=== PATIENT | female | born 1950 | race Caucasian/White ===

== ENCOUNTER 2016-09-21 12:07 | Observation (INO) | payer OTHER ==
[~2016-09-21] VITALS: Ht 160 cm; Wt 83.5 kg
[2016-09-21 13:19] LABS: HEMOGLOBIN 13.6 gm/dl (12.3-15.3); RED BLOOD COUNT 4.37 M/UL (4.00-5.10)
[2016-09-21 13:30] LABS: BUN/CREATININE RATIO 20 (0-10)
[2016-09-22] MEDS ORDERED: EFFEXOR XR 75 M75 MG PO (00:42)
[2016-09-22] MEDS ORDERED: VITAMIN D50000 UNIT PO (00:47)
[2016-09-22] MEDS ORDERED: PROTONIX 40 MG40 M1 PO (00:47)
[2016-09-22] MEDS ORDERED: HYDROXYZINE HCL25 MG PO (00:48)
[2016-09-22] MEDS ORDERED: FEXOFENADINE HC60 MG PO (00:49)
[2016-09-22] MEDS ORDERED: VICTOZA 1818 MG/3 ML SC (00:50)
[2016-09-22] MEDS ORDERED: ESTRADERM 0.05 M1 EA TD (00:50)
[2016-09-22] MEDS ORDERED: NEURONTIN 400400 MG PO (00:51)
[2016-09-22] MEDS ORDERED: GLUCOPHAGE 850850 MG PO (00:51)
[2016-09-22 07:05] LABS: BUN/CREATININE RATIO 16 (0-10)
[2016-09-22 07:37] LABS: HEMOGLOBIN 11.1 gm/dl (12.3-15.3); RED BLOOD COUNT 3.53 M/UL (4.00-5.10); WHITE BLOOD COUNT 6.5 K/UL (4.5-11.0)
[2016-09-23] MEDS ORDERED: CIPRO500 MG PO (16:46)
[2016-09-23] MEDS ORDERED: FLAGYL500 MG PO (16:46)
== END 2016-09-23 20:24 | disposition home or self-care (01) ==
LOC: ER1 12:07 → ZEROF 18:45 → MED SURG 4 21:28
PROVIDERS: Emergency Medicine; ADMIT Family Medicine
DX: K57.32 Diverticulitis of large intestine without perforation or abscess without bleeding (principal); N20.0 Calculus of kidney; R31.9 Hematuria, unspecified; D72.829 Elevated white blood cell count, unspecified; E11.9 Type 2 diabetes mellitus without complications; K21.9 Gastro-esophageal reflux disease without esophagitis; N81.9 Female genital prolapse, unspecified; E78.5 Hyperlipidemia, unspecified; Z79.899 Other long term (current) drug therapy; Z90.49 Acquired absence of other specified parts of digestive tract
CPT/HCPCS: 36415; 80048; 80053; 81001; 82150; 82962; 83036; 83690; 84484; 85025; 86140; 94640; 96365; 96366; 96367; 96375; 96376; 99285; G0378; J1335; J1956; J2270; J2405; J7030; J7050; Q0177

== ENCOUNTER 2017-02-19 11:35 | Emergency (ER) | payer OTHER ==
[~2017-02-19 11:35] MED LIST: CIPRO500 MG PO; EFFEXOR XR 75 M75 MG PO; ESTRADERM 0.05 M1 EA TD; FEXOFENADINE HC60 MG PO; FLAGYL500 MG PO; GLUCOPHAGE 850850 MG PO; HYDROXYZINE HCL25 MG PO; NEURONTIN 400400 MG PO; PROTONIX 40 MG40 M1 PO; VICTOZA 1818 MG/3 ML SC; VITAMIN D50000 UNIT PO
== END 2017-02-19 14:04 | disposition home or self-care (01) ==
LOC: ER1 11:35
DX: G89.29 Other chronic pain (principal); M54.5 Low back pain; E11.9 Type 2 diabetes mellitus without complications; Z88.0 Allergy status to penicillin
CPT/HCPCS: 96372; 99283; J1885; J2270

== ENCOUNTER → 2020-08-30 | Outpatient (CLI) | payer MEDICARE, OTHER ==
[~2020-08-30] MED LIST changes: +BENTYL 20MG TAB20 MG PO; +CYMBALTA60 MG PO; +DESYREL 50 MG T50 MG PO; +FLONASE 0.05% N16 GM; +MAGOX 400400 MG PO; +MECLIZINE HCL25 MG PO; +MEDROL4 MG PO; +MIRALAX17 GM PO; +MOBIC7.5 MG PO; +NAPROSYN500 MG PO; +NORCO 10-325 T1 EACH PO; +PHENERGAN 25 MG25 M1 PO; +ROBAXIN 750 MG750 MG PO; +SINEQUAN CAP 5050 MG PO; +STOOL SOFTENER250 MG PO; +VITAMIN D250000 UNIT PO; +ZANTAC 150 MG150 MG PO; +ZOFRAN4 MG PO
== END ==
LOC: LAB 17:17
DX: R30.0 Dysuria (principal)
CPT/HCPCS: 81001

== ENCOUNTER 2020-09-12 05:12 | Emergency (ER) | payer MEDICARE, OTHER ==
[~2020-09-12 05:12] MED LIST changes: -PHENERGAN 25 MG25 M1 PO
[2020-09-12 05:40] LABS: HEMOGLOBIN 13.8 gm/dl (12.3-15.3); RED BLOOD COUNT 4.21 M/UL (4.00-5.10); WHITE BLOOD COUNT 11.6 K/UL (4.5-11.0)
[2020-09-12 05:53] LABS: BUN/CREATININE RATIO 25 (0-10)
[2020-09-12 07:42] LABS: ADENOVIRUS F 40/41 Not Detected (Negative); ASTROVIRUS Not Detected (Negative); CAMPYLOBACTER Not Detected (Negative); CLOSTRIDIUM DIFFICILE TOX A/B Not Detected (Negative); CRYPTOSPORIDIUM Not Detected (Negative); E.COLI 0157 Not Detected (Negative); ENTAMOEBA HISTOLYTICA Not Detected (Negative); ENTEROAGGREGATIVE E.COLI (EAEC Not Detected (Negative); ENTEROPATHOGENIC E.COLI (EPEC) Not Detected (Negative); ENTEROTOXIGENIC E.COLI (ETEC) Not Detected (Negative); GIARDIA LAMBLIA Not Detected (Negative); NOROVIRUS GI/GII Not Detected (Negative); PLESIOMONAS SHIGELLOIDES Not Detected (Negative); ROTOVIRUS A Not Detected (Negative); SALMONELLA Not Detected (Negative); SAPOVIRUS Not Detected (Negative); SHIG/ENTEROINVAS.ECOLI (EIEC) Not Detected (Negative); SHIGA-LIK TOX.PRO.E.COLI (STEC Not Detected (Negative); VIBRIO Not Detected (Negative); VIBRIO CHOLERAE Not Detected (Negative); YERSINIA ENTEROCOLITICA Not Detected (Negative)
[2020-09-12] MEDS ORDERED: PHENERGAN 25 MG25 M1 PO (09:10)
[2020-09-12] MEDS ORDERED: FLAGYL500 MG PO (09:10)
[2020-09-12] MEDS ORDERED: BENTYL 20MG TAB20 MG PO (09:10)
== END 2020-09-12 10:20 | disposition home or self-care (01) ==
LOC: ER1 05:12
PROVIDERS: Emergency Medicine; Family Medicine
DX: K52.9 Noninfective gastroenteritis and colitis, unspecified (principal); R11.2 Nausea with vomiting, unspecified; E11.9 Type 2 diabetes mellitus without complications; Z90.710 Acquired absence of both cervix and uterus; Z87.442 Personal history of urinary calculi; Z79.84 Long term (current) use of oral hypoglycemic drugs
CPT/HCPCS: 80053; 81001; 83690; 85025; 87507; 96372; 96374; 99284; J0500; J2405; Q9967

== ENCOUNTER → 2021-03-23 | Outpatient (CLI) | payer MEDICARE, OTHER ==
[~2021-03-23] MED LIST changes: +PHENERGAN 25 MG25 M1 PO
== END ==
LOC: EXRD 13:06
DX: R06.02 Shortness of breath (principal)
CPT/HCPCS: 71046

== ENCOUNTER → 2021-06-27 | Outpatient (CLI) | payer MEDICARE, OTHER | LOC: EXRD 13:09 | DX: R05.9 Cough, unspecified (principal); R10.9 Unspecified abdominal pain; M54.50 Low back pain, unspecified; M47.816 Spondylosis without myelopathy or radiculopathy, lumbar region; R91.8 Other nonspecific abnormal finding of lung field | CPT/HCPCS: 71046; 72100; 74018 ==

== ENCOUNTER → 2022-01-11 | Outpatient (CLI) | payer MEDICARE ==
[~2022-01-11] MED LIST changes: +OMNICEF 300 MG300 MG PO
== END ==
LOC: EXRD 14:01
DX: M25.561 Pain in right knee (principal); M25.562 Pain in left knee
CPT/HCPCS: 73564